=== PATIENT | female | born 1975 | race Caucasian/White ===

== ENCOUNTER → 2023-09-12 07:05 | Outpatient (REF) | payer BC, SELFPAY | LOC: HWRAD 07:05 | PROVIDERS: ATTENDING PHYSICIAN Nurse Practitioner Family | DX: R74.8 Abnormal levels of other serum enzymes (principal); Z83.79 Family history of other diseases of the digestive system | CPT/HCPCS: 76700 ==

== ENCOUNTER → 2023-09-16 12:53 | Outpatient (REF) | payer BC, SELFPAY | LOC: WDC 12:53 | PROVIDERS: ATTENDING PHYSICIAN Nurse Practitioner Family | DX: Z12.31 Encounter for screening mammogram for malignant neoplasm of breast (principal) | CPT/HCPCS: 77063; 77067 ==

== ENCOUNTER → 2023-09-20 08:34 | Outpatient (REF) | payer BC, SELFPAY | LOC: HWRAD 08:34 | PROVIDERS: ATTENDING PHYSICIAN Nurse Practitioner Family | DX: K76.0 Fatty (change of) liver, not elsewhere classified (principal) | CPT/HCPCS: 74170; Q9967 ==

== ENCOUNTER → 2023-11-20 12:05 | Outpatient (REF) | payer BC, SELFPAY | LOC: MRI 3T 12:05 | PROVIDERS: ATTENDING PHYSICIAN Nurse Practitioner Family | DX: R16.1 Splenomegaly, not elsewhere classified (principal) | CPT/HCPCS: 74183; A9575 ==

== ENCOUNTER → 2024-05-26 18:10 | Outpatient (REF) | payer BC, SELFPAY | LOC: MRI 3T 18:10 | PROVIDERS: ATTENDING PHYSICIAN Nurse Practitioner Family | DX: R16.1 Splenomegaly, not elsewhere classified (principal) | CPT/HCPCS: 74183; A9575 ==

== ENCOUNTER → 2025-01-11 09:40 | Outpatient (REF) | payer BC, SELFPAY | LOC: DHSLP 09:40 | PROVIDERS: ATTENDING PHYSICIAN Physician Assistant Medical | DX: G47.33 Obstructive sleep apnea (adult) (pediatric) (principal) | CPT/HCPCS: 95800 ==

== ENCOUNTER → 2025-02-09 13:58 | Outpatient (REF) | payer BC, SELFPAY | LOC: WDC 13:58 | PROVIDERS: ATTENDING PHYSICIAN Physician Assistant Medical; FAMILY PHYSICIAN Nurse Practitioner Family | DX: Z12.31 Encounter for screening mammogram for malignant neoplasm of breast (principal) | CPT/HCPCS: 77063; 77067 ==

== ENCOUNTER → 2025-03-04 19:16 | Outpatient (REF) | payer BC, SELFPAY | LOC: MRI 3T 19:16 | PROVIDERS: ATTENDING PHYSICIAN Physician Assistant Medical | DX: R16.1 Splenomegaly, not elsewhere classified (principal) | CPT/HCPCS: 74183; A9575 ==